=== PATIENT | male | born 1965 | race African-American/Black ===

== ENCOUNTER 2016-12-03 13:42 | Emergency (ER) | payer MEDICAID, OTHER ==
[~2016-12-03] VITALS: Ht 190.5 cm; Wt 81.6 kg
[~2016-12-03 13:42] MED LIST: DEPAKOTE500 MG PO; IBUPROFEN600 MG ORAL; MONISTAT TOPIC; NKM; SEROQUEL25 MG ORAL; WELLBUTRIN SR150 M1 PO
[2016-12-03 14:08] VITALS: BP 136/84
[2016-12-03 14:23] LABS: MEAN CORPUSCULAR HGB CONC 33.5 G/DL (32.0-36.0); MEAN CORPUSCULAR VOLUME 98 FL (80-99); MEAN PLATELET VOLUME 6.4 FL (6.5-10.1); PLATELET COUNT 257 K/UL (150-450); RED BLOOD COUNT 4.75 M/UL (4.70-6.10); RED CELL DISTRIBUTION WIDTH 11.4 % (11.6-14.8)
[2016-12-03 14:35] LABS: ACETAMINOPHEN < 10 ug/mL (10-30); ALANINE AMINOTRANSFERASE 23 U/L (3-41); ALBUMIN/GLOBULIN RATIO 1.1 (1.0-2.7); ALCOHOL < 10 mg/dL; ANION GAP 18 (5-15); ASPARTATE AMINO TRANSFERASE 27 U/L (5-40); CALCIUM 9.5 mg/dL (8.6-10.2); CARBON DIOXIDE 23 mEQ/L (20-30); CHLORIDE 95 mEQ/L (98-107); CREATININE 1.1 mg/dL (0.7-1.2); GLOMERULAR FILTRATION RATE > 60 mL/min (>60); HEMOLYSIS 3; SODIUM 136 mEQ/L (135-145); TOTAL PROTEIN 8.2 g/dL (6.6-8.7)
[2016-12-03 14:42] LABS: LYMPHOCYTES % (MANUAL) 10 % (20-45); NEUTROPHILS % (MANUAL) 84 % (45-75); TOTAL CELLS COUNTED 100
[2016-12-03 14:43] LABS: BAND NEUTROPHILS % (MANUAL) 0 % (0-8); BASOPHILS % (MANUAL) 0 % (0-2); EOSINOPHILS % (MANUAL) 0 % (0-3); PLATELET ESTIMATE ADEQUATE; PLATELET MORPHOLOGY NORMAL
[2016-12-03 14:47] LABS: BILIRUBIN,DIRECT 0.2 mg/dL (0.1-0.3)
--- NOTE | 2016-12-03 15:18 | Emergency Room Report ---
History of Present Illness General Chief Complaint: Suicidal Source: Patient (ELIZABETH LEBRON) Present Illness HPI The patient is a 51-year-old male with history of bipolar disorder and schizophrenia presenting for suicidal and homicidal ideation. The patient states that he last took his psychiatric medications one month prior because he was "kicked out" of a psychiatric facility without any prescription for medications. The patient has not seen any mental health specialist in this time. The patient states that he now wants to run out into a busy street in order to hurt himself and others because he does not like people. The patient denies using any drugs or drinking alcohol recently. The patient denies any other symptoms including chest pain, shortness of breath , nausea, vomiting, fever, chills, abdominal pain (ELIZABETH LEBRON) Allergies: Coded Allergies: No Known Allergies (Unverified , 09/19/13) Patient History Past Medical History: see triage record Pertinent Family History: none Reviewed Nursing Documentation: PMH: Agreed, PSxH: Agreed (ELIZABETH LEBRON) Nursing Documentation-PMH Past Medical History: No History, Except For Hx Hypertension: Yes History Of Psychiatric Problem: Yes - schizophrenic bipolar anxiety disorder (ELIZABETH LEBRON) Review of Systems All Other Systems: negative except mentioned in HPI (ELIZABETH LEBRON) Physical Exam Vital Signs Date Time Temp Pulse Resp B/P Pulse Ox O2 Delivery O2 Flow Rate FiO2 12/03/16 13:49 99.0 101 18 136/84 98 Room Air Sp02 EP Interpretation: reviewed, normal General Appearance: no apparent distress, alert, GCS 15, non-toxic Head: normocephalic, atraumatic Eyes: bilateral eye PERRL, bilateral eye normal inspection ENT: hearing grossly normal, normal pharynx, no angioedema, normal voice Neck: full range of motion, supple/symm/no masses Respiratory: chest non-tender, no respiratory distress, no accessory muscle use , speaking full sentences, wheezing - diffuse Cardiovascular #1: regular rate, rhythm, no edema Gastrointestinal: normal bowel sounds, non tender, soft, non-distended, no guarding, no rebound Rectal: deferred Genitourinary: normal inspection, no CVA tenderness Musculoskeletal: back normal, gait/station normal, normal range of motion, non- tender Neurologic: alert, oriented x3, responsive, motor strength/tone normal, sensory intact, normal gait, speech normal Psychiatric: judgement/insight normal, memory normal, mood/affect normal, no suicidal/homicidal ideation Suicide Risk Assessment: Suicidal Ideation: Yes Had intent to initiate attempt: No Pt's plan for suicide attempt: Yes Has means to complete attempt: Yes Skin: normal color, no rash, warm/dry, well hydrated Lymphatic: no adenopathy (ELIZABETH LEBRON) Medical Decision Making PA Attestation Dr. Bob is my supervising physician. Patient management was discussed with my supervising physician (ELIZABETH LEBRON) Diagnostic Impression: Primary Impression: Suicidal ideation Additional Impressions: Pneumonia Qualified Codes: J18.9 - Pneumonia, unspecified organism Cocaine abuse ER Course The patient is a 51-year-old male with history of bipolar disorder and schizophrenia presenting for suicidal and homicidal ideation Differential diagnoses considered but not limited to suicidal ideation, homicidal ideation, depression, Pneumonia, bronchitis Physical exam: Vitals within normal limits. No apparent distress. The patient is resting comfortably. HEENT exam unremarkable. Lungs: There is diffuse wheezing noted. No respiratory distress. RRR Abdomen is soft and nontender. Normal bowel sounds Skin is warm and dry Labs: CBC show significant leukocytosis. Urine drug screen positive for cocaine Otherwise unremarkable The pt is started on levaquin and will be admitted as he is no longer medically cleared due to cough, wheezing, and leukocytosis. Dr. Bob spoke with Dr. Melendez regarding admission. Pt to be admitted in stable condition. Laboratory Tests Test 12/03/16 14:00 12/03/16 19:20 White Blood Count 21.0 K/UL (4.8-10.8) H 18.9 K/UL (4.8-10.8) H Red Blood Count 4.75 M/UL (4.70-6.10) 4.36 M/UL (4.70-6.10) L Hemoglobin 15.7 G/DL (14.2-18.0) 14.1 G/DL (14.2-18.0) L Hematocrit 46.8 % (42.0-52.0) 42.2 % (42.0-52.0) Mean Corpuscular Volume 98 FL (80-99) 97 FL (80-99) Mean Corpuscular Hemoglobin 33.0 PG (27.0-31.0) H 32.4 PG (27.0-31.0) H Mean Corpuscular Hemoglobin Concent 33.5 G/DL (32.0-36.0) 33.5 G/DL (32.0-36.0) Red Cell Distribution Width 11.4 % (11.6-14.8) L 11.3 % (11.6-14.8) L Platelet Count 257 K/UL (150-450) 236 K/UL (150-450) Mean Platelet Volume 6.4 FL (6.5-10.1) L 6.3 FL (6.5-10.1) L Neutrophils (%) (Auto) % (45.0-75.0) % (45.0-75.0) Lymphocytes (%) (Auto) % (20.0-45.0) % (20.0-45.0) Monocytes (%) (Auto) % (1.0-10.0) % (1.0-10.0) Eosinophils (%) (Auto) % (0.0-3.0) % (0.0-3.0) Basophils (%) (Auto) % (0.0-2.0) % (0.0-2.0) Differential Total Cells Counted 100 100 Neutrophils % (Manual) 84 % (45-75) H 70 % (45-75) Lymphocytes % (Manual) 10 % (20-45) L 22 % (20-45) Monocytes % (Manual) 6 % (1-10) 4 % (1-10) Eosinophils % (Manual) 0 % (0-3) 0 % (0-3) Basophils % (Manual) 0 % (0-2) 0 % (0-2) Band Neutrophils 0 % (0-8) 4 % (0-8) Platelet Estimate Adequate Adequate Platelet Morphology Normal Normal Red Blood Cell Morphology Normal Normal Sodium Level 136 mEQ/L (135-145) Potassium Level 4.0 mEQ/L (3.4-4.9) Chloride Level 95 mEQ/L (98-107) L Carbon Dioxide Level 23 mEQ/L (20-30) Anion Gap 18 (5-15) H Blood Urea Nitrogen 14 mg/dL (7-23) Creatinine 1.1 mg/dL (0.7-1.2) Estimate Glomerular Filtration Rate > 60 mL/min (>60) Glucose Level 103 mg/dL (74-106) Calcium Level 9.5 mg/dL (8.6-10.2) Total Bilirubin 1.1 mg/dL (0.0-1.2) Direct Bilirubin 0.2 mg/dL (0.1-0.3) Aspartate Amino Transferase (AST) 27 U/L (5-40) Alanine Aminotransferase (ALT) 23 U/L (3-41) Alkaline Phosphatase 58 U/L (40-129) Total Protein 8.2 g/dL (6.6-8.7) Albumin 4.3 g/dL (3.5-5.2) Globulin 3.9 g/dL Albumin/Globulin Ratio 1.1 (1.0-2.7) Salicylates Level < 1 mg/dL (10-30) L Urine Opiates Screen Negative (NEGATIVE) Acetaminophen Level < 10 ug/mL (10-30) L Urine Barbiturates Screen Negative (NEGATIVE) Phencyclidine (PCP) Screen Negative (NEGATIVE) Urine Amphetamines Screen Negative (NEGATIVE) Urine Benzodiazepines Screen Negative (NEGATIVE) Urine Cocaine Screen Positive (NEGATIVE) H Urine Marijuana (THC) Screen Negative (NEGATIVE) Serum Alcohol < 10 mg/dL Lab Results Impression CBC show significant leukocytosis. Urine drug screen positive for cocaine Otherwise unremarkable (ELIZABETH LEBRON) ER Course Patient signed out to me. He was pending transfer. Unfortunately there is no bed and is delayed transfer so patient will be admitted here. He is well-known to me. She been here multiple time for suicidal and homicidal thought secondary to cocaine abuse. He does have a pneumonia with a leukocytosis. Antibiotic started. Will admit to Dr. Huerta. Patient slept through the night here. Now he is awake. He said he felt better. He wants his Seroquel and wants to leave. We'll discharge with cushion for antibiotics and cervical. We'll give him mental health referral. This patient is a chronic risk of self injury due to poor impulse control, limited coping skills, and judgment intermittently impaired by intoxication. I believe that the available clinical evidence to suggest that these characteristics derived primarily from personality disorder and are likely very stable over time. Hospitalization would likely attenuate risk of self-harm only during chcf period, without lasting risk reduction. Serious self-harm , while possible, would likely be inadvertent, and because of impulsivity, and foreseeable. For these reasons, I do not believe hospitalization would provide meaningful reduction in risk of self-harm. (ARTI RUIZ M.D.) Chest X-Ray Diagnostic Results EP Interpretation: Yes Findings: other - LLL infiltrate Number of Views: 1 PA Scribe Text I am acting as scribe for my supervising physician. My supervising physician's interpretation of the chest xrays are there is infiltrate of the left lower lobe (ELIZABETH LEBRON) Last Vital Signs Date Time Temp Pulse Resp B/P Pulse Ox O2 Delivery O2 Flow Rate FiO2 12/03/16 14:08 18 136/84 98 Room Air 12/03/16 13:49 99.0 101 Status: improved (ELIZABETH LEBRON) Status: improved (ARTI RUIZ M.D.) Disposition: HOME, SELF-CARE Condition: Stable Scripts Azithromycin* (ZITHROMAX*) 250 Mg Tablet 250 MG ORAL DAILY, #6 TAB 0 Refills Take two tables once daily for 1 day, then one tablet once daily for 4 days. Prov: ARTI RUIZ M.D. 12/04/16 Quetiapine Fumarate (SEROQUEL XR) 150 Mg Tab.er.24h 150 MG ORAL DAILY, #30 TAB Prov: ARTI RUIZ M.D. 12/04/16 Referrals: [facility] (PCP) Additional Instructions: Abstain from drugs and alcohol. Followup with your DrNadir in 7 days. Followup with rehabilitation. ELIZABETH LEBRON Dec 03, 2016 15:18 ARTI RUIZ M.D. Dec 03, 2016 23:16
[2016-12-03 15:48] VITALS: BP 139/69
[2016-12-03 18:12] VITALS: BP 133/64
[2016-12-03 19:28] LABS: MEAN CORPUSCULAR HEMOGLOBIN 32.4 PG (27.0-31.0); MEAN CORPUSCULAR HGB CONC 33.5 G/DL (32.0-36.0); MEAN CORPUSCULAR VOLUME 97 FL (80-99); MEAN PLATELET VOLUME 6.3 FL (6.5-10.1); PLATELET COUNT 236 K/UL (150-450); RED BLOOD COUNT 4.36 M/UL (4.70-6.10); RED CELL DISTRIBUTION WIDTH 11.3 % (11.6-14.8); WHITE BLOOD COUNT 18.9 K/UL (4.8-10.8)
[2016-12-03 20:16] VITALS: BP 135/67
[2016-12-03 21:29] LABS: BAND NEUTROPHILS % (MANUAL) 4 % (0-8); BASOPHILS % (MANUAL) 0 % (0-2); EOSINOPHILS % (MANUAL) 0 % (0-3); LYMPHOCYTES % (MANUAL) 22 % (20-45); NEUTROPHILS % (MANUAL) 70 % (45-75); PLATELET ESTIMATE ADEQUATE; PLATELET MORPHOLOGY NORMAL; TOTAL CELLS COUNTED 100
[2016-12-03 21:48] VITALS: BP 131/72
[2016-12-04] MEDS ORDERED: Miralax 17gm pkt ORAL PRN (00:15)
[2016-12-04] MEDS ORDERED: Mylanta II UD 30ml ORAL PRN (00:15)
[2016-12-04] MEDS ORDERED: Nitroglycerin Subl 0.4mg tab (Bottle Of 25) SL PRN (00:15)
[2016-12-04] MEDS ORDERED: DuoNeb 0.5-3(2.5)mg/3ml neb HHN PRN (00:15)
[2016-12-04] MEDS ORDERED: Promethazine/Codeine 5ml UD ORAL PRN (00:15)
[2016-12-04 01:30] VITALS: BP 127/73
[2016-12-04 02:35] VITALS: BP 130/75
[2016-12-04 03:40] VITALS: BP 126/69
[2016-12-04] MEDS ORDERED: SEROQUEL XR150 MG ORAL (05:25)
[2016-12-04] MEDS ORDERED: ZITHROMAX250 MG ORAL (05:25)
[2016-12-04 05:30] VITALS: BP 123/74
[2016-12-04] MEDS: Cefepime HCl 1 GM in D5W 55 ML IV SCH ×2 (05:48→05:49)
[2016-12-04 06:00] VITALS: BP 123/74
[2016-12-04] MEDS ORDERED: Heparin 5000 units/ml inj SUBQ SCH (09:00)
[2016-12-04] MEDS ORDERED: Depakote 500mg tab ORAL SCH (09:00)
--- NOTE | 2016-12-04 13:39 | Diagnostic Imaging Report ---
Indication: SOB Technique: One view of the chest Comparison: 04/14/2016 Findings: Atelectatic changes are seen at both lung bases. No acute infiltrates or effusions. Heart size is upper limits of normal Impression: No acute process
== END 2016-12-04 06:00 | disposition other institution (70) ==
LOC: EMR 14:17 → UNDOADMIN 22:46 → 4E 22:46 → EDBEDREQ 23:09 → 4E 12-04 06:00
DX: R45.851 Suicidal ideations (principal); J18.9 Pneumonia, unspecified organism; D72.829 Elevated white blood cell count, unspecified; F14.10 Cocaine abuse, uncomplicated; I10 Essential (primary) hypertension; F20.9 Schizophrenia, unspecified; F31.9 Bipolar disorder, unspecified; F41.9 Anxiety disorder, unspecified
CPT/HCPCS: 36415; 71010; 80053; 80300; 82248; 85007; 85025; 87040; 96374; 96375; 99284; G0480; J0692; J1956; 80329

== ENCOUNTER 2017-01-21 03:47 | Emergency (ER) | payer OTHER ==
[~2017-01-21] VITALS: Ht 190.5 cm; Wt 81.6 kg
[~2017-01-21 03:47] MED LIST changes: +SEROQUEL XR150 MG ORAL; +ZITHROMAX250 MG ORAL
[2017-01-21 04:00] VITALS: BP 136/95
[2017-01-21] MEDS ORDERED: Depakote ER 500mg tab ORAL ONE (04:30)
[2017-01-21 06:00] VITALS: BP 138/97
[2017-01-21 06:15] VITALS: BP 138/97
--- NOTE | 2017-01-22 00:56 | Emergency Room Report ---
History of Present Illness General Chief Complaint: Pain Source: Patient Present Illness HPI 51-year-old male presents ED for evaluation. Patient notes history of bipolar and schizophrenia. States that he needs his medication. Also complaining of runny nose and cough. Denies any fevers or chills. Patient denies any suicidal homicidal ideation. Denies hearing voices. Denies alcohol or drug use. No other aggravating or relieving factors. Denies any other associated symptoms Allergies: Coded Allergies: No Known Allergies (Unverified , 01/21/17) Patient History Past Medical History: psych hx Past Surgical History: none Pertinent Family History: none Social History: Denies: alcohol use, drug use, smoking Immunizations: UTD Reviewed Nursing Documentation: PMH: Agreed, PSxH: Agreed Nursing Documentation-PMH Past Medical History: No History, Except For Hx Hypertension: Yes History Of Psychiatric Problem: Yes - bi-polar, anxiety disorder Review of Systems All Other Systems: negative except mentioned in HPI Physical Exam Vital Signs Date Time Temp Pulse Resp B/P Pulse Ox O2 Delivery O2 Flow Rate FiO2 01/21/17 03:52 98.1 86 16 136/95 99 Room Air Sp02 EP Interpretation: reviewed, normal General Appearance: no apparent distress, alert, GCS 15, non-toxic Head: normocephalic, atraumatic Eyes: bilateral eye PERRL, bilateral eye normal inspection ENT: hearing grossly normal, normal pharynx, no angioedema, normal voice Neck: full range of motion, supple/symm/no masses Respiratory: chest non-tender, lungs clear, normal breath sounds, speaking full sentences Cardiovascular #1: regular rate, rhythm, no edema Cardiovascular #2: 2+ carotid (R), 2+ carotid (L), 2+ radial (R), 2+ radial (L) , 2+ dorsalis pedis (R), 2+ dorsalis pedis (L) Gastrointestinal: normal bowel sounds, non tender, soft, non-distended, no guarding, no rebound Rectal: deferred Genitourinary: normal inspection, no CVA tenderness Musculoskeletal: back normal, gait/station normal, normal range of motion, non- tender Neurologic: alert, oriented x3, responsive, motor strength/tone normal, sensory intact, speech normal Psychiatric: judgement/insight normal, memory normal, no suicidal/homicidal ideation, no delusions, depressed affect, anxious Reflexes: 3+ bicep (R), 3+ bicep (L), 3+ tricep (R), 3+ tricep (L), 3+ knee (R) , 3+ knee (L) Skin: normal color, no rash, warm/dry, well hydrated Lymphatic: no adenopathy Medical Decision Making Diagnostic Impression: Primary Impression: Behavioral disorder Additional Impression: Upper respiratory disease ER Course Hospital Course 51-year-old male presents to ED complaining of cough, runny nose Differential diagnoses include: URI, pharyngitis, otitis media, asthma Clinical course Patient placed on stretcher. After initial history, physical exam reveals a male in no acute distress. Bilateral TM unremarkable. No pharyngeal erythema. No tonsillar exudates. No lymphadenopathy. lungs clear. abdomen soft. No evidence of suicidal or homicidal ideation. Denies hearing voices. Patient given Depakote in ED Diagnosis - URI, behavioral disorder Stable and discharged home. Instructed to followup with PMD. Return to ED if symptoms recur or worsen Last Vital Signs Date Time Temp Pulse Resp B/P Pulse Ox O2 Delivery O2 Flow Rate FiO2 01/21/17 06:15 98.5 91 16 138/97 99 Room Air Status: improved Disposition: HOME, SELF-CARE Condition: Stable Patient Instructions: Bipolar Disorder KAILEY ANTHONY M.D. Jan 22, 2017 00:55
== END 2017-01-21 06:30 | disposition home or self-care (01) ==
LOC: EMR 04:05
DX: J06.9 Acute upper respiratory infection, unspecified (principal); F91.9 Conduct disorder, unspecified; I10 Essential (primary) hypertension; F31.9 Bipolar disorder, unspecified; F20.9 Schizophrenia, unspecified; F41.9 Anxiety disorder, unspecified
CPT/HCPCS: 99282

== ENCOUNTER 2017-02-05 05:07 | Emergency (ER) | payer OTHER ==
[~2017-02-05] VITALS: Ht 190.5 cm; Wt 81.6 kg
[2017-02-05 05:15] VITALS: BP 128/83
--- NOTE | 2017-02-05 05:36 | Emergency Room Report ---
History of Present Illness General Chief Complaint: Pain Source: Patient, Medical Record Present Illness HPI This is a 51-year-old male well-known to this ER. He has a history of cocaine abuse and also opioid dependence. He also has a psych history. He presents with chief complaint of bilateral feet pain. This is a chronic problem. He said pain is 10 out of 10. Hard time walking. Denies any fever. Denies any trauma. Said that he needed a [place]. No other complaint. Allergies: Coded Allergies: No Known Allergies (Unverified , 01/21/17) Patient History Past Medical History: see triage record, old chart reviewed, psych hx Past Surgical History: other Pertinent Family History: none Social History: Reports: alcohol use, drug use, smoking Immunizations: other Reviewed Nursing Documentation: PMH: Agreed, PSxH: Agreed Nursing Documentation-PMH Hx Hypertension: Yes History Of Psychiatric Problem: Yes - bipolar, manic depressive, schizophrenia Review of Systems Eye: Denies: blurred vision, eye pain ENT: Denies: ear pain, nose congestion, throat swelling Respiratory: Denies: cough, shortness of breath Cardiovascular: Denies: chest pain, palpitations Gastrointestinal: Denies: abdominal pain, diarrhea, nausea, vomiting Musculoskeletal: Denies: back pain, joint pain Skin: Denies: rash Neurological: Denies: headache, numbness Endocrine: Denies: increased thirst, increased urine Hematologic/Lymphatic: Denies: easy bruising All Other Systems: negative except mentioned in HPI Physical Exam Vital Signs Date Time Temp Pulse Resp B/P Pulse Ox O2 Delivery O2 Flow Rate FiO2 02/05/17 05:09 97.9 81 16 128/83 98 Room Air vitals normal Sp02 EP Interpretation: reviewed, normal General Appearance: well appearing, no apparent distress, alert Head: normocephalic, atraumatic Eyes: bilateral eye EOMI, bilateral eye PERRL ENT: hearing grossly normal, normal pharynx Neck: full range of motion, supple, no meningismus Respiratory: chest non-tender, lungs clear, normal breath sounds Cardiovascular #1: regular rate, rhythm, no murmur Gastrointestinal: normal bowel sounds, non tender, no mass, no organomegaly, no bruit, non-distended Musculoskeletal: back normal, gait/station normal, normal range of motion, other - Feet with callous but no deformity. No trauma. Psychiatric: mood/affect normal Skin: warm/dry Medical Decision Making Diagnostic Impression: Primary Impression: Foot pain, bilateral Additional Impression: Cocaine abuse ER Course Patient presents with bilateral feet pain. He walked in here without any difficulty. There is no trauma. No evidence of infection. No evidence of septic joint. No evidence of necrotizing fasciitis. We'll discharge home. Encouraged him to stop using cocaine. Last Vital Signs Date Time Temp Pulse Resp B/P Pulse Ox O2 Delivery O2 Flow Rate FiO2 02/05/17 05:09 97.9 81 16 128/83 98 Room Air Status: improved Disposition: HOME, SELF-CARE Condition: Stable Referrals: [facility] (PCP) Patient Instructions: Chronic Pain Additional Instructions: Stop using drugs. Followup with rehabilitation. Followup with your Dr. in 7 days. Return if worse. ARTI RUIZ M.D. Feb 05, 2017 05:36
[2017-02-05 05:46] VITALS: BP 128/83
== END 2017-02-05 05:45 | disposition home or self-care (01) ==
LOC: EMR 05:15
DX: M79.672 Pain in left foot (principal); M79.671 Pain in right foot; F14.10 Cocaine abuse, uncomplicated; I10 Essential (primary) hypertension; F31.9 Bipolar disorder, unspecified; F20.9 Schizophrenia, unspecified; F17.200 Nicotine dependence, unspecified, uncomplicated; F11.20 Opioid dependence, uncomplicated
CPT/HCPCS: 99282

== ENCOUNTER 2017-04-22 05:14 | Emergency (ER) | payer OTHER ==
[~2017-04-22] VITALS: Ht 190.5 cm; Wt 78.9 kg
[2017-04-22] MEDS ORDERED: Depakote 500mg tab ORAL ONE (05:30)
--- NOTE | 2017-04-22 05:33 | Emergency Room Report ---
History of Present Illness General Chief Complaint: Pain Source: Patient Present Illness HPI Patient presents with complaints of bilateral feet pain Patient reports that he was out of his psychiatric medication including Depakote Therefore he was walking around a lot causing increased pain Patient reports being off the medicine for the past 2 days Otherwise denies any homicidal or suicidal thoughts Denies any chest pressures of breath Pain to both feet is 10 out of 10 denies any other focal weakness Allergies: Coded Allergies: No Known Allergies (Unverified , 01/21/17) Patient History Past Medical History: see triage record Pertinent Family History: none Reviewed Nursing Documentation: PMH: Agreed, PSxH: Agreed Nursing Documentation-PM Past Medical History: No History, Except For Hx Hypertension: Yes History Of Psychiatric Problem: Yes - bi-polar Review of Systems All Other Systems: negative except mentioned in HPI Physical Exam Vital Signs Date Time Temp Pulse Resp B/P Pulse Ox O2 Delivery O2 Flow Rate FiO2 04/22/17 05:17 97.3 89 16 114/81 98 Room Air Sp02 EP Interpretation: reviewed, normal General Appearance: well appearing, no apparent distress Head: normocephalic, atraumatic Eyes: bilateral eye EOMI, bilateral eye PERRL ENT: hearing grossly normal, normal pharynx, TMs + canals normal, uvula midline Neck: full range of motion, supple, no meningismus, no bony tend Respiratory: lungs clear, normal breath sounds, no rhonchi, no respiratory distress, no retraction, no accessory muscle use Cardiovascular #1: normal peripheral pulses, regular rate, rhythm, no edema, no gallop, no JVD, no murmur Gastrointestinal: normal bowel sounds, non tender, soft, no mass, no organomegaly, non-distended, no guarding, no hernia, no pulsatile mass, no rebound Genitourinary: no CVA tenderness Musculoskeletal: other - Patient has a chronic appearance of a blister on both base of the feet no obvious erythema, appears to be chronic Neurologic: oriented x3, responsive, returned case inspector III-XII nml as tested, motor strength/ tone normal, sensory intact Psychiatric: anxious - Initially mildly anxious but denies any homicidal or suicidal thoughts, Skin: other - Old-appearing blisters on both base of the feet Lymphatic: normal inspection, no adenopathy Medical Decision Making Diagnostic Impression: Primary Impression: Foot pain, bilateral Additional Impression: Medication refill ER Course Patient was provided acute medications here in the ER continues to deny any homicidal suicidal thoughts Patient reports that he simply wanted a prescription for his medication And at this time stable for close outpatient followup Last Vital Signs Date Time Temp Pulse Resp B/P Pulse Ox O2 Delivery O2 Flow Rate FiO2 04/22/17 05:17 97.3 89 16 114/81 98 Room Air Status: improved Disposition: HOME, SELF-CARE Condition: Improved Scripts Quetiapine Fumarate* (SEROQUEL*) 200 Mg Tablet 200 MG ORAL DAILY, #20 TAB Prov: KARLA POOLE D.O. 04/22/17 Divalproex Sodium (Depakote) 500 Mg Tablet.dr 500 MG PO BID, #30 TAB Prov: KARLA POOLE D.O. 04/22/17 Additional Instructions: Patient is provided with the discharge instructions notified to follow up with primary doctor in the next 2-3 days otherwise return to the er with any worsening symptoms. Please note that this report is being documented using [employer] technology. This can lead to erroneous entry secondary to incorrect interpretation by the dictating instrument. KARLA POOLE D.O. Apr 22, 2017 05:33
[2017-04-22] MEDS ORDERED: QUETIAPINE FUM200 MG ORAL (05:35)
[2017-04-22] MEDS ORDERED: DEPAKOTE500 MG PO (05:35)
[2017-04-22 05:56] VITALS: BP 114/81
[2017-04-22 05:57] VITALS: BP 114/81
== END 2017-04-22 06:16 | disposition home or self-care (01) ==
LOC: EMR 05:45
DX: M25.572 Pain in left ankle and joints of left foot (principal); Z76.0 Encounter for issue of repeat prescription; M25.571 Pain in right ankle and joints of right foot; I10 Essential (primary) hypertension
CPT/HCPCS: 99284

== ENCOUNTER 2017-07-19 07:34 | Emergency (ER) | payer OTHER ==
[~2017-07-19] VITALS: Ht 190.5 cm; Wt 84.8 kg
[~2017-07-19 07:34] MED LIST changes: +QUETIAPINE FUM200 MG ORAL
[2017-07-19 07:45] VITALS: BP 118/77
--- NOTE | 2017-07-19 08:13 | Emergency Room Report ---
History of Present Illness General Chief Complaint: Pain Source: Patient Present Illness HPI Presents with bilateral foot pain. He states been walking a lot. He states this is because the buses are infrequent. He complains that his left great toe is digging into his second toe. There is a bruise underneath the nail. The patient has been seen for the same twice before in the emergency department. The patient has a history of bipolar disorder and schizophrenia. He states he has a prescription but hasn't filled it. In the past he's been on valproic acid , Seroquel and Wellbutrin. He denies suicidal ideation at this time and also states that he doesn't feel that he needs to be taking his medication at this time. He denies any fevers, chills, redness of the skin. He does have callus formations on his feet. Allergies: Coded Allergies: No Known Allergies (Unverified , 01/21/17) Patient History Past Medical History: see triage record Social History: Reports: smoking, drug use - in past + cocaine Social History Narrative has apartment/home Reviewed Nursing Documentation: PMH: Agreed, PSxH: Agreed Nursing Documentation-PMH Hx Hypertension: Yes Review of Systems All Other Systems: negative except mentioned in HPI Physical Exam Vital Signs Date Time Temp Pulse Resp B/P (MAP) Pulse Ox O2 Delivery O2 Flow Rate FiO2 07/19/17 07:45 98.2 83 15 118/77 98 Room Air Sp02 EP Interpretation: reviewed, normal General Appearance: normal inspection, well appearing, no apparent distress, thin Head: normocephalic, atraumatic Eyes: bilateral eye PERRL, bilateral eye Scleral Injection ENT: hearing grossly normal, normal voice, moist mucus membranes Neck: full range of motion, supple Respiratory: lungs clear, normal breath sounds, no respiratory distress, speaking full sentences Cardiovascular #1: regular rate, rhythm Gastrointestinal: normal inspection, non tender, soft, scaphoid Musculoskeletal: back normal, digits/nails normal - see skin, gait/station normal, normal range of motion, no calf tenderness Neurologic: alert, cytology manager III-XII nml as tested, motor strength/tone normal, DTRs symmetric, sensory intact, cerebellar normal, normal gait Psychiatric: no suicidal/homicidal ideation, depressed affect Skin: other - callouses, subungual hematoma great toe (old) Medical Decision Making Diagnostic Impression: Primary Impression: Foot pain, bilateral Additional Impression: Schizoaffective disorder, bipolar type ER Course The patient presents with bilateral foot pain. There is no evidence of recent trauma. He walks a lot. Differential includes strain, callous amongst others. Exam exclude cellulitis. In addition the patient has bipolar disorder and schizophrenia. He slightly inappropriate but not delusional at this time. He also denies suicidality. He does have a prescription for medication. The patient will be treated with Motrin here. Slightly more labile when leaving but purposeful. Advised to fill his medications. Patient stable for outpatient observation and treatment. Last Vital Signs Date Time Temp Pulse Resp B/P (MAP) Pulse Ox O2 Delivery O2 Flow Rate FiO2 07/19/17 08:35 98.2 83 15 118/77 98 Room Air Status: improved Disposition: HOME, SELF-CARE Condition: Improved Scripts Ibuprofen* (MOTRIN*) 600 Mg Tablet 600 MG ORAL Q6H Y for For Pain, #20 TAB Prov: Josue Partida M.D. 07/19/17 Referrals: [facility] (PCP) Josue Partida M.D. Jul 19, 2017 08:13
[2017-07-19] MEDS ORDERED: IBUPROFEN600 MG ORAL (08:15)
[2017-07-19 08:35] VITALS: BP 118/77
== END 2017-07-19 08:37 | disposition home or self-care (01) ==
LOC: EMR 08:01
DX: M79.672 Pain in left foot (principal); M79.671 Pain in right foot; F25.0 Schizoaffective disorder, bipolar type; F17.200 Nicotine dependence, unspecified, uncomplicated; I10 Essential (primary) hypertension
CPT/HCPCS: 99283

== ENCOUNTER 2017-08-17 09:16 | Emergency (ER) | payer SELFPAY ==
[~2017-08-17] VITALS: Ht 182.9 cm; Wt 81.6 kg
--- NOTE | 2017-08-17 09:17 | Emergency Room Report ---
History of Present Illness General Chief Complaint: Pain Source: Patient, EMS Present Illness HPI Patient 52-year-old male brought in by EMS with [employer]. The patient was in [facility] and would not leave. Patient was brought in after increased leg pain. The patient history is markedly limited by patient's lack of cooperation. Allergies: Coded Allergies: No Known Allergies (Unverified , 01/21/17) Patient History Reviewed Nursing Documentation: PMH: Agreed, PSxH: Agreed Nursing Documentation-PMH Past Medical History: No History, Except For Hx Hypertension: Yes Hx Neurological Problems: Yes - BIPOLAR Review of Systems All Other Systems: limited - by poor cooperation Physical Exam Vital Signs Date Time Temp Pulse Resp B/P (MAP) Pulse Ox O2 Delivery O2 Flow Rate FiO2 08/17/17 09:08 97.7 72 20 116/74 98 Room Air General Appearance: well appearing, no apparent distress, alert, GCS 15 Head: normocephalic, atraumatic ENT: hearing grossly normal, normal voice Neck: full range of motion, supple Respiratory: no respiratory distress, speaking full sentences Cardiovascular #1: normal inspection Gastrointestinal: normal inspection, soft Musculoskeletal: normal inspection, back normal, no calf tenderness Neurologic: normal inspection, alert, responsive, 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 Differential diagnosis included but was not limited to fracture, contusion,vascular insufficiency, aortic aneurysm, cellulitis. Patient's benign exam and does not appear to require any further imaging or laboratory testing at this time. The patient was noted to be sleeping in emergency department. The patient is easily arousable . Patient stated that he only needs his medications which are Depakote and Seroquel.The patient does not appear to have any acute psychiatric need. The patient is advised to follow up with primary care doctor in 1-2 days. Patient is advised to return if any worsening condition or if any changes in status that are concerning. Last Vital Signs Date Time Temp Pulse Resp B/P (MAP) Pulse Ox O2 Delivery O2 Flow Rate FiO2 08/17/17 09:08 97.7 72 20 116/74 98 Room Air Status: improved Disposition: HOME, SELF-CARE Condition: Stable Scripts Divalproex Sodium (Depakote) 500 Mg Tablet.dr 500 MG PO BID, #30 TAB Prov: Santiago Lyon 08/17/17 Quetiapine Fumarate (SEROQUEL XR) 150 Mg Tab.er.24h 150 MG ORAL DAILY, #30 TAB Prov: Santiago Lyon 08/17/17 Santiago Lyon Aug 17, 2017 09:17
[2017-08-17 09:24] VITALS: BP 116/74
[2017-08-17] MEDS ORDERED: Depakote 500mg tab ORAL ONE (13:00)
[2017-08-17] MEDS ORDERED: DEPAKOTE500 MG PO (13:03)
[2017-08-17] MEDS ORDERED: SEROQUEL XR150 MG ORAL (13:03)
[2017-08-17 14:00] VITALS: BP 120/72
[2017-08-17 14:15] VITALS: BP 120/72
== END 2017-08-17 14:19 | disposition home or self-care (01) ==
LOC: EDBD 09:16 → EMR 10:01
DX: R46.89 Other symptoms and signs involving appearance and behavior (principal); M79.672 Pain in left foot; M79.671 Pain in right foot; I10 Essential (primary) hypertension; F31.9 Bipolar disorder, unspecified
CPT/HCPCS: 99284

== ENCOUNTER 2017-10-05 22:31 | Emergency (ER) | payer MEDICAID, OTHER ==
[~2017-10-05] VITALS: Ht 190.5 cm; Wt 81.6 kg
[2017-10-05] MEDS ORDERED: NKM (22:38)
[2017-10-05 22:40] VITALS: BP 140/99
--- NOTE | 2017-10-05 23:05 | Emergency Room Report ---
History of Present Illness General Chief Complaint: General Complaint Source: Patient Present Illness HPI Is a 52-year-old male with a psychiatric history. Also history of drug abuse with cocaine most recently. He presents with chief complaint of bilateral feet pain. This is a chronic issue for him. Denies any fever chills denies any trauma. Pain is 10 out of 10. No nausea no vomiting. Has not been taking his psychiatric medicine also. Allergies: Coded Allergies: No Known Allergies (Unverified , 01/21/17) Patient History Past Medical History: see triage record, old chart reviewed, psych hx Past Surgical History: other Pertinent Family History: none Social History: Reports: drug use Immunizations: other Reviewed Nursing Documentation: PMH: Agreed, PSxH: Agreed Nursing Documentation-PMH Hx Hypertension: Yes History Of Psychiatric Problem: Yes - anxiety, depression, schizoeffective Hx Neurological Problems: Yes - BIPOLAR Review of Systems Eye: Denies: eye pain, blurred vision ENT: Denies: ear pain, nose congestion, throat swelling Respiratory: Denies: cough, shortness of breath Cardiovascular: Denies: chest pain, palpitations Gastrointestinal: Denies: abdominal pain, diarrhea, nausea, vomiting Musculoskeletal: Reports: muscle pain, Denies: back pain, joint pain Skin: Denies: rash Neurological: Denies: headache, numbness Endocrine: Denies: increased thirst, increased urine Hematologic/Lymphatic: Denies: easy bruising All Other Systems: negative except mentioned in HPI Physical Exam Vital Signs Date Time Temp Pulse Resp B/P (MAP) Pulse Ox O2 Delivery O2 Flow Rate FiO2 10/05/17 22:34 98.1 85 18 140/99 98 Room Air vitals normal Sp02 EP Interpretation: reviewed, normal General Appearance: well appearing, no apparent distress, alert Head: normocephalic, atraumatic Eyes: bilateral eye PERRL, bilateral eye EOMI ENT: hearing grossly normal, normal pharynx Neck: full range of motion, supple, no meningismus Respiratory: chest non-tender, lungs clear, normal breath sounds Cardiovascular #1: regular rate, rhythm, no murmur Gastrointestinal: normal bowel sounds, non tender, no mass, no organomegaly, no bruit, non-distended Musculoskeletal: back normal, gait/station normal, normal range of motion, other - No evidence of any trauma to his feet. No swelling. Psychiatric: mood/affect normal Skin: warm/dry Medical Decision Making Diagnostic Impression: Primary Impression: Foot pain, bilateral Additional Impression: Behavioral disorder ER Course Patient presents with exacerbation of chronic pain. I see no trauma. He is walking around without any difficulty. We'll discharge home. Last Vital Signs Date Time Temp Pulse Resp B/P (MAP) Pulse Ox O2 Delivery O2 Flow Rate FiO2 10/05/17 22:34 98.1 85 18 140/99 98 Room Air Status: unchanged Disposition: HOME, SELF-CARE Condition: Stable Referrals: [facility] [place] (PCP) Additional Instructions: Followup with your Dr. in 7 days. Return if worse. ARTI RUIZ M.D. Oct 05, 2017 23:05
[2017-10-05 23:15] VITALS: BP 140/99
== END 2017-10-05 23:15 | disposition home or self-care (01) ==
LOC: EMR 22:57
DX: M79.672 Pain in left foot (principal); M79.671 Pain in right foot; F91.9 Conduct disorder, unspecified; I10 Essential (primary) hypertension; F31.9 Bipolar disorder, unspecified; F41.9 Anxiety disorder, unspecified
CPT/HCPCS: 99282

== ENCOUNTER 2017-12-31 05:41 | Emergency (ER) | payer MEDICAID ==
[~2017-12-31] VITALS: Ht 190.5 cm; Wt 81.6 kg
[2017-12-31] MEDS ORDERED: QUEtiapine 200mg tab ORAL STA (05:45)
[2017-12-31] MEDS ORDERED: Depakote 500mg tab ORAL ONE (05:45)
[2017-12-31 06:24] LABS: APPEARANCE,URINE CLEAR; BILIRUBIN, URINE NEGATIVE (NEGATIVE); COLOR,URINE PALE YELLOW; GLUCOSE, URINE (UA) NEGATIVE (NEGATIVE); KETONES,URINE NEGATIVE (NEGATIVE); LEUKOCYTE ESTERASE ,URINE NEGATIVE (NEGATIVE); NITRITE,URINE NEGATIVE (NEGATIVE); PH,URINE 7 (4.5-8.0); PROTEIN,URINE NEGATIVE (NEGATIVE); UROBILINOGEN,URINE 1 MG/DL (0.0-1.0)
--- NOTE | 2017-12-31 06:30 | Emergency Room Report ---
History of Present Illness General Chief Complaint: Behavioral Complaint Source: Patient Present Illness HPI Patient presents not complying with this antipsychotic medications. He was supposed to be taking Seroquel and Depakote. He states he is suicidal and wants to jump in front of traffic on [employer] and [employer]. No fever, chills, NVD, chest pain, rashes, abdominal pain, NVD, joint pain. He has had similar visits in the past and improved with taking his mediations. Allergies: Coded Allergies: No Known Allergies (Unverified , 01/21/17) Patient History Past Medical History: see triage record Social History: Reports: smoking, drug use - see tox Social History Narrative , live on [facility]ad[facility] Reviewed Nursing Documentation: PMH: Agreed, PSxH: Agreed Nursing Documentation-PMH Hx Hypertension: Yes History Of Psychiatric Problem: Yes - BIPOLAR,SCHIZO Hx Neurological Problems: Yes - BIPOLAR Review of Systems All Other Systems: negative except mentioned in HPI Physical Exam Vital Signs Date Time Temp Pulse Resp B/P (MAP) Pulse Ox O2 Delivery O2 Flow Rate FiO2 12/31/17 05:46 97.9 84 16 132/77 98 Room Air 97.9 Sp02 EP Interpretation: reviewed, normal General Appearance: well appearing, no apparent distress, GCS 15 Head: normocephalic Eyes: bilateral eye normal inspection, bilateral eye PERRL ENT: moist mucus membranes Neck: supple Respiratory: lungs clear, normal breath sounds Cardiovascular #1: regular rate, rhythm Cardiovascular #2: 2+ radial (R) Gastrointestinal: normal inspection, normal bowel sounds, non tender, no mass, non-distended Musculoskeletal: back normal, gait/station normal, normal range of motion Neurologic: alert, oriented x3, grossly normal Psychiatric: other - angry Suicide Risk Assessment: Suicidal Ideation: Yes Had intent to initiate attempt: Yes Pt's plan for suicide attempt: Yes Has means to complete attempt: Yes Skin: normal inspection, warm/dry Medical Decision Making Diagnostic Impression: Primary Impression: Cocaine abuse Additional Impressions: Suicidal ideation Schizoaffective disorder, bipolar type Alcohol abuse Non compliance w medication regimen ER Course Patient presents with suicidal ideation and noncompliance. Differential includes exacerbation of schizoaffective disorder, psychosis, drug or alcohol intoxication and abuse, electrolyte imbalance amongst others. The patient is a nonfocal neurologic exam at this time. Evaluation will be with labs. No imaging is indicated. The patient will be treated with his usual medications and be reevaluated. Patient + for cocaine, THC and alcohol. Rest of labs unremarkable. Needs re-evaluation with meds and after drugs less active. May need psychiatric evaluation. Signed out to Dr. Lyon. Laboratory Tests Test 12/31/17 05:53 12/31/17 06:00 Urine Color Pale yellow Urine Appearance Clear Urine pH 7 (4.5-8.0) Urine Specific [place] 1.010 (1.005-1.035) Urine Protein Negative (NEGATIVE) Urine Glucose (UA) Negative (NEGATIVE) Urine Ketones Negative (NEGATIVE) Urine Occult Blood Negative (NEGATIVE) Urine Nitrite Negative (NEGATIVE) Urine Bilirubin Negative (NEGATIVE) Urine Urobilinogen 1 MG/DL (0.0-1.0) H Urine Leukocyte Esterase Negative (NEGATIVE) Urine Opiates Screen Negative (NEGATIVE) Urine Barbiturates Screen Negative (NEGATIVE) Phencyclidine (PCP) Screen Negative (NEGATIVE) Urine Amphetamines Screen Negative (NEGATIVE) Urine Benzodiazepines Screen Negative (NEGATIVE) Urine Cocaine Screen Positive (NEGATIVE) H Urine Marijuana (THC) Screen Positive (NEGATIVE) H White Blood Count 5.3 K/UL (4.8-10.8) Red Blood Count 4.76 M/UL (4.70-6.10) Hemoglobin 15.3 G/DL (14.2-18.0) Hematocrit 45.0 % (42.0-52.0) Mean Corpuscular Volume 95 FL (80-99) Mean Corpuscular Hemoglobin 32.2 PG (27.0-31.0) H Mean Corpuscular Hemoglobin Concent 34.0 G/DL (32.0-36.0) Red Cell Distribution Width 12.0 % (11.6-14.8) Platelet Count 301 K/UL (150-450) Mean Platelet Volume 6.7 FL (6.5-10.1) Neutrophils (%) (Auto) 34.8 % (45.0-75.0) L Lymphocytes (%) (Auto) 52.3 % (20.0-45.0) H Monocytes (%) (Auto) 8.1 % (1.0-10.0) Eosinophils (%) (Auto) 2.3 % (0.0-3.0) Basophils (%) (Auto) 2.4 % (0.0-2.0) H Sodium Level 139 MMOL/L (136-145) Potassium Level 3.6 MMOL/L (3.5-5.1) Chloride Level 103 MMOL/L (98-107) Carbon Dioxide Level 26 MMOL/L (21-32) Anion Gap 10 mmol/L (5-15) Blood Urea Nitrogen 15 mg/dL (7-18) Creatinine 1.1 MG/DL (0.55-1.30) Estimate Glomerular Filtration Rate > 60 mL/min (>60) Glucose Level 106 MG/DL (74-106) Calcium Level 9.1 MG/DL (8.5-10.1) Total Bilirubin 0.3 MG/DL (0.2-1.0) Aspartate Amino Transferase (AST) 32 U/L (15-37) Alanine Aminotransferase (ALT) 40 U/L (12-78) Alkaline Phosphatase 81 U/L (46-116) Total Creatine Kinase 616 U/L (26-308) H Troponin I 0.000 ng/mL (0.000-0.056) Total Protein 8.2 G/DL (6.4-8.2) Albumin 3.9 G/DL (3.4-5.0) Globulin 4.3 g/dL Albumin/Globulin Ratio 0.9 (1.0-2.7) L Salicylates Level 1.6 ug/mL (2.8-20) L Acetaminophen Level < 2 MCG/ML (10-30) L Valproic Acid Level < 3 MCG/ML (50-100) L Serum Alcohol 40 mg/dL EKG Diagnostic Results Rate: normal Rhythm: NSR ST Segments: no acute changes Rhythm Strip Diag. Results EP Interpretation: yes Rhythm: NSR, no PVC's, no ectopy Last Vital Signs Date Time Temp Pulse Resp B/P (MAP) Pulse Ox O2 Delivery O2 Flow Rate FiO2 12/31/17 09:56 97.9 80 17 118/76 97 Room Air 97.9 Status: improved Disposition: HOME, SELF-CARE Condition: Improved Referrals: [facility] [place],[facility] (PCP) Josue Partida M.D. Dec 31, 2017 06:30
[2017-12-31 06:38] VITALS: BP 132/77
[2017-12-31 07:06] LABS: BASOPHILS % (AUTO) 2.4 % (0.0-2.0); EOSINOPHILS % (AUTO) 2.3 % (0.0-3.0); HEMOGLOBIN 15.3 G/DL (14.2-18.0); LYMPHOCYTES % (AUTO) 52.3 % (20.0-45.0); MEAN CORPUSCULAR VOLUME 95 FL (80-99); MONOCYTES % (AUTO) 8.1 % (1.0-10.0); NEUTROPHILS % (AUTO) 34.8 % (45.0-75.0); PLATELET COUNT 301 K/UL (150-450); RED BLOOD COUNT 4.76 M/UL (4.70-6.10); WHITE BLOOD COUNT 5.3 K/UL (4.8-10.8)
[2017-12-31 07:07] LABS: ANION GAP 10 mmol/L (5-15); BLOOD UREA NITROGEN 15 mg/dL (7-18); CALCIUM 9.1 MG/DL (8.5-10.1); CARBON DIOXIDE 26 MMOL/L (21-32); CHLORIDE 103 MMOL/L (98-107); CREATININE 1.1 MG/DL (0.55-1.30); POTASSIUM 3.6 MMOL/L (3.5-5.1); SODIUM 139 MMOL/L (136-145)
[2017-12-31 07:14] LABS: ALANINE AMINOTRANSFERASE 40 U/L (12-78); ALBUMIN 3.9 G/DL (3.4-5.0); ALBUMIN/GLOBULIN RATIO 0.9 (1.0-2.7); ALKALINE PHOSPHATASE 81 U/L (46-116); ASPARTATE AMINO TRANSFERASE 32 U/L (15-37); BILIRUBIN,TOTAL 0.3 MG/DL (0.2-1.0); CREATINE KINASE 616 U/L (26-308)
[2017-12-31 09:56] VITALS: BP 118/76
[2017-12-31 13:42] VITALS: BP 0/0
--- NOTE | 2017-12-31 15:00 | Cardiology Report ---
APPROVED REPORT EKG Measurement Heart [id number] Normal sinus rhythm Possible Left atrial enlargement Nonspecific T wave abnormality Abnormal ECG
--- NOTE | 2018-01-01 07:00 | Consultation ---
DATE OF CONSULTATION: 12/31/2017 NOTE: POOR AUDIO HISTORY OF PRESENT ILLNESS: The patient is a 52-year-old male, who has been admitted through the voices telling him to kill himself unable to sleep. He stated that psychiatric hospital. He moved to the [facility] before worsening of situation. The patient has been observed in the ED responding to internal stimuli. He stated that he has a psychiatrist and has been prescribed medications, however, he has not been taking the medications. MENTAL STATUS EXAMINATION: The patient is alert and oriented x4. Mood is neutral. Affect is constricted. Thought process is concrete. Thought content, no suicidal or homicidal ideations. No psychotic symptoms. ASSESSMENT: [place] I Schizophrenia by history. [place] II Deferred. [place] III As above. [place] IV Low. [place] V Global assessment of functioning is 50. PLAN: 1. The patient will be discharged. He did not meet criteria for inpatient medical care . 2. The patient is not an imminent danger to self or others. Lilli Charles M.D. DR: VANDA JOB#: [id number] CC:
== END 2017-12-31 13:35 | disposition home or self-care (01) ==
LOC: EMR 06:09
DX: F14.10 Cocaine abuse, uncomplicated (principal); R45.851 Suicidal ideations; F25.0 Schizoaffective disorder, bipolar type; F10.10 Alcohol abuse, uncomplicated; Z91.14 Patient's other noncompliance with medication regimen; I10 Essential (primary) hypertension
CPT/HCPCS: 36415; 80053; 80164; 80307; 80329; 81003; 82550; 84484; 85025; 93005; 99284

== ENCOUNTER 2018-01-29 05:04 | Emergency (ER) | payer MEDICAID ==
[~2018-01-29] VITALS: Ht 190.5 cm; Wt 86.2 kg
[2018-01-29] MEDS ORDERED: Bacitracin Oint UD TOPIC ONE (05:30)
--- NOTE | 2018-01-29 05:38 | Emergency Room Report ---
History of Present Illness General Chief Complaint: Lower Extremity Injury Source: Patient Present Illness HPI The patient was just discharged from [facility] [place] 2 days ago. He was hospitalized for cellulitis of his feet. He received IV antibiotics and was discharged on Keflex. He states he has been taking Keflex for 7 days. Is complaining about pain in his feet. Has been ambulating a substantial amount. He's been living on the streets but is planning on going to live with his brother. The patient denies any fevers, chills, nausea, vomiting, diarrhea. The patient is not suicidal or depressed. His tetanus is up-to-date. H/O schizoaffective bipolar disorder. Allergies: Coded Allergies: No Known Allergies (Unverified , 01/21/17) Patient History Past Medical History: see triage record Social History: Reports: smoking, alcohol use, drug use - cocaine in past Social History Narrative Homeless Reviewed Nursing Documentation: PMH: Agreed; PSxH: Agreed Nursing Documentation-PMH Hx Hypertension: Yes Hx Neurological Problems: Yes - BIPOLAR Review of Systems All Other Systems: negative except mentioned in HPI Physical Exam Vital Signs Date Time Temp Pulse Resp B/P (MAP) Pulse Ox O2 Delivery O2 Flow Rate FiO2 01/29/18 05:20 98.4 97 18 117/74 98 Room Air 98.4 Sp02 EP Interpretation: reviewed, normal General Appearance: well appearing, no apparent distress Head: normocephalic, atraumatic Eyes: bilateral eye normal inspection, bilateral eye PERRL ENT: hearing grossly normal, normal voice, moist mucus membranes Neck: full range of motion, supple Respiratory: no respiratory distress, speaking full sentences Cardiovascular #1: regular rate, rhythm Cardiovascular #2: 2+ dorsalis pedis (R), 2+ dorsalis pedis (L) Gastrointestinal: scaphoid Musculoskeletal: gait/station normal, normal range of motion, no calf tenderness, other - callous formation feet Neurologic: alert, normal gait, grossly normal Psychiatric: mood/affect normal, no suicidal/homicidal ideation Skin: other - ulcer top of L 2nd toe, no erythema (no erythema of feet) Medical Decision Making Diagnostic Impression: Primary Impression: Foot pain, bilateral Additional Impressions: Resolving cellulitis Schizoaffective disorder, bipolar type ER Course The patient presents with bilateral foot pain. He was recently hospitalized for cellulitis. He denies suicidal or homicidal ideation at this time. He has quite a bit of callus formation on his feet. There is no erythema. There is open ulcer over his second toe on the left-hand side. There is no drainage from this at this time. He states he has no medication for pain. Clinically there is no need for labs or x-rays at this time. Diagnosis his clinical. The patient needs analgesia and topical antibiotics. Psychiatrically the patient is stable at this time. The patient is stable for outpatient observation and treatment. Last Vital Signs Date Time Temp Pulse Resp B/P (MAP) Pulse Ox O2 Delivery O2 Flow Rate FiO2 01/29/18 05:46 98.4 18 117/74 98 Room Air 98.4 01/29/18 05:20 97 Status: improved Disposition: HOME, SELF-CARE Condition: Improved Scripts Acetaminophen (Tylenol) 325 Mg Tablet 650 MG ORAL Q6H PRN for Prn Pain/Headache/Temp > 101, #20 TAB 0 Refills Prov: Josue Partida M.D. 01/29/18 Ibuprofen* (MOTRIN*) 600 Mg Tablet 600 MG ORAL Q6H PRN for For Pain, #16 TAB Prov: Josue Partida M.D. 01/29/18 Bacitracin (Bacitracin) 28.4 Gm Oint...g. 1 APPLIC TOPIC BID, #20 GM Prov: Josue Partida M.D. 01/29/18 Referrals: [facility] (PCP) Josue Partida M.D. Jan 29, 2018 05:38
[2018-01-29] MEDS ORDERED: BACITRACIN15 GM TOPIC (05:43)
[2018-01-29] MEDS ORDERED: IBUPROFEN600 MG ORAL (05:43)
[2018-01-29] MEDS ORDERED: TYLENOL325 MG ORAL (05:43)
[2018-01-29 05:46] VITALS: BP 117/74
== END 2018-01-29 05:48 | disposition home or self-care (01) ==
LOC: EMR 05:25
DX: M79.672 Pain in left foot (principal); M79.671 Pain in right foot; L03.032 Cellulitis of left toe; F25.0 Schizoaffective disorder, bipolar type
CPT/HCPCS: 99284

== ENCOUNTER 2018-08-03 09:13 | Emergency (ER) | payer MEDICAID ==
[~2018-08-03] VITALS: Ht 182.9 cm; Wt 92.1 kg
[~2018-08-03 09:13] MED LIST changes: +BACITRACIN15 GM TOPIC; +TYLENOL325 MG ORAL
--- NOTE | 2018-08-03 09:37 | Emergency Room Report ---
History of Present Illness General Chief Complaint: Behavioral Complaint Source: Patient (Santiago Lyon MD) Present Illness HPI Patient 53-year-old male who presented after increased agitation. The patient was having increased hallucinations and suicidal thoughts. Patient states that he did a "gang of cocaine". The patient reports having prior history of psychiatric disease and is supposed to be taking Depakote as well as Seroquel. He reports being out of his medication since . Patient denies any chest discomfort. He reports having generalized agitation. The patient reports having decreased ability to sleep. (Santiago Lyon MD) Allergies: Coded Allergies: No Known Allergies (Unverified , 08/03/18) Patient History Reviewed Nursing Documentation: PMH: Agreed; PSxH: Agreed (Santiago Lyon MD) Nursing Documentation-PMH Past Medical History: No History, Except For Hx Hypertension: Yes Hx Neurological Problems: Yes - BIPOLAR (Santiago Lyon MD) Review of Systems All Other Systems: negative except mentioned in HPI (Santiago Lyon MD) Physical Exam Vital Signs Date Time Temp Pulse Resp B/P (MAP) Pulse Ox O2 Delivery O2 Flow Rate FiO2 08/03/18 09:21 98.0 86 16 128/78 95 Room Air 98.1 Sp02 EP Interpretation: reviewed, normal General Appearance: alert/responsive, no apparent distress, GCS 15, non-toxic Head: atraumatic Eyes: PERRL, lids + conjunctiva normal ENT: hearing intact, no angioedema Neck: supple/symm/no masses, no meningismus Respiratory: effort normal, no wheezing, chest symmetrical Cardiovascular: regular rate, rhythm, no edema Cardiovascular #2: 2+ carotid (R), 2+ carotid (L), 2+ dorsalis pedis (R), 2+ dorsalis pedis (L) Gastrointestinal: non-tender, no mass, non-distended, no rebound/guarding, normal bowel sounds Musculoskeletal: gait & station normal, strength & tone normal, normal ROM, non -tender Neurologic: oriented x3, sensory intact, normal speech Skin: no rash, well hydrated Lymphatic: normal inspection (Santiago Lyon MD) Medical Decision Making Diagnostic Impression: Primary Impression: Cocaine abuse Additional Impressions: Noncompliance with medications Schizoaffective disorder, bipolar type Foot pain, bilateral ER Course Patient presented for bilateral foot pain and agitation.. Differential diagnoses include substance abuse, psychosis, bipolar disorder, depression, malingering. Patient was given Ativan with some improvement in agitation. Patient was given ibuprofen for pain to his feet. This appears chronic.Dr. Charles was contacted for psychiatric consult. Labs Test 08/03/18 09:45 08/03/18 10:00 Urine Color Pale yellow Urine Appearance Clear Urine pH 5 (4.5-8.0) Urine Specific [place] 1.010 (1.005-1.035) Urine Protein Negative (NEGATIVE) Urine Glucose (UA) Negative (NEGATIVE) Urine Ketones Negative (NEGATIVE) Urine Blood Negative (NEGATIVE) Urine Nitrite Negative (NEGATIVE) Urine Bilirubin Negative (NEGATIVE) Urine Urobilinogen Normal MG/DL (0.0-1.0) Urine Leukocyte Esterase Negative (NEGATIVE) Urine Opiates Screen Negative (NEGATIVE) Urine Barbiturates Screen Negative (NEGATIVE) Phencyclidine (PCP) Screen Negative (NEGATIVE) Urine Amphetamines Screen Negative (NEGATIVE) Urine Benzodiazepines Screen Negative (NEGATIVE) Urine Cocaine Screen Positive (NEGATIVE) Urine Marijuana (THC) Screen Positive (NEGATIVE) White Blood Count 6.1 K/UL (4.8-10.8) Red Blood Count 4.77 M/UL (4.70-6.10) Hemoglobin 14.9 G/DL (14.2-18.0) Hematocrit 44.0 % (42.0-52.0) Mean Corpuscular Volume 92 FL (80-99) Mean Corpuscular Hemoglobin 31.3 PG (27.0-31.0) Mean Corpuscular Hemoglobin Concent 34.0 G/DL (32.0-36.0) Red Cell Distribution Width 12.2 % (11.6-14.8) Platelet Count 298 K/UL (150-450) Mean Platelet Volume 6.5 FL (6.5-10.1) Neutrophils (%) (Auto) 41.3 % (45.0-75.0) Lymphocytes (%) (Auto) 47.0 % (20.0-45.0) Monocytes (%) (Auto) 9.3 % (1.0-10.0) Eosinophils (%) (Auto) 0.8 % (0.0-3.0) Basophils (%) (Auto) 1.6 % (0.0-2.0) Sodium Level 137 MMOL/L (136-145) Potassium Level 4.2 MMOL/L (3.5-5.1) Chloride Level 103 MMOL/L (98-107) Carbon Dioxide Level 25 MMOL/L (21-32) Anion Gap 9 mmol/L (5-15) Blood Urea Nitrogen 15 mg/dL (7-18) Creatinine 1.3 MG/DL (0.55-1.30) Estimat Glomerular Filtration Rate > 60 mL/min (>60) Glucose Level 83 MG/DL (74-106) Calcium Level 9.4 MG/DL (8.5-10.1) Total Bilirubin 1.1 MG/DL (0.2-1.0) Direct Bilirubin 0.2 MG/DL (0.0-0.3) Aspartate Amino Transf (AST/SGOT) 47 U/L (15-37) Alanine Aminotransferase (ALT/SGPT) 52 U/L (12-78) Alkaline Phosphatase 70 U/L (46-116) Total Protein 8.6 G/DL (6.4-8.2) Albumin 4.2 G/DL (3.4-5.0) Globulin 4.4 g/dL Albumin/Globulin Ratio 1.0 (1.0-2.7) Salicylates Level 2.5 ug/mL (2.8-20) Acetaminophen Level < 2 MCG/ML (10-30) Valproic Acid (Depakene) Level 8 MCG/ML (50-100) Serum Alcohol < 3 mg/dL (Santiago Lyon MD) ER Course Patient signout to me. He came in agitated probably secondary to his noncompliance with medication and cocaine abuse. He received Ativan and Depakote. I gave him Zyprexa here. He's been sleeping for several hours and able to eat and drink without a problem. Now he is calm. No longer suicidal. No acute for 5150. This is a frequent and very similar to previous episodes that he usually presents with. We'll discharge home. This patient is a chronic risk of self injury due to poor impulse control, limited coping skills, and judgment intermittently impaired by intoxication. I believe that the available clinical evidence to suggest that these characteristics derived primarily from personality disorder and are likely very stable over time. Hospitalization would likely attenuate risk of self-harm only during shelter period, without lasting risk reduction. Serious self-harm , while possible, would likely be inadvertent, and because of impulsivity, and foreseeable. For these reasons, I do not believe hospitalization would provide meaningful reduction in risk of self-harm. (ARTI RUIZ M.D.) Last Vital Signs Date Time Temp Pulse Resp B/P (MAP) Pulse Ox O2 Delivery O2 Flow Rate FiO2 08/03/18 09:21 98.0 86 16 128/78 95 Room Air 98.1 (Santiago Lyon MD) Status: improved (ARTI RUIZ M.D.) Disposition: HOME, SELF-CARE Condition: Stable Referrals: [facility] [place],[facility]ERR (PCP) Patient Instructions: Self-Destructive Behavior Additional Instructions: Stop using drugs. Take your medication. Follow-up with mental health clinic within a week. Return if worse. Santiago Lyon MD Aug 03, 2018 09:37 ARTI RUIZ M.D. Aug 03, 2018 23:24
[2018-08-03 10:05] LABS: APPEARANCE,URINE CLEAR; BILIRUBIN, URINE NEGATIVE (NEGATIVE); COLOR,URINE PALE YELLOW; GLUCOSE, URINE (UA) NEGATIVE (NEGATIVE); KETONES,URINE NEGATIVE (NEGATIVE); LEUKOCYTE ESTERASE ,URINE NEGATIVE (NEGATIVE); NITRITE,URINE NEGATIVE (NEGATIVE); PH,URINE 5 (4.5-8.0); PROTEIN,URINE NEGATIVE (NEGATIVE); UROBILINOGEN,URINE NORMAL MG/DL (0.0-1.0)
[2018-08-03 10:20] LABS: BASOPHILS % (AUTO) 1.6 % (0.0-2.0); EOSINOPHILS % (AUTO) 0.8 % (0.0-3.0); HEMOGLOBIN 14.9 G/DL (14.2-18.0); MEAN CORPUSCULAR VOLUME 92 FL (80-99); MONOCYTES % (AUTO) 9.3 % (1.0-10.0); NEUTROPHILS % (AUTO) 41.3 % (45.0-75.0); PLATELET COUNT 298 K/UL (150-450); RED BLOOD COUNT 4.77 M/UL (4.70-6.10); RED CELL DISTRIBUTION WIDTH 12.2 % (11.6-14.8); WHITE BLOOD COUNT 6.1 K/UL (4.8-10.8)
[2018-08-03 10:26] VITALS: BP 127/78
[2018-08-03 10:42] LABS: ANION GAP 9 mmol/L (5-15); BLOOD UREA NITROGEN 15 mg/dL (7-18); CALCIUM 9.4 MG/DL (8.5-10.1); CARBON DIOXIDE 25 MMOL/L (21-32); CHLORIDE 103 MMOL/L (98-107); CREATININE 1.3 MG/DL (0.55-1.30); POTASSIUM 4.2 MMOL/L (3.5-5.1); SODIUM 137 MMOL/L (136-145)
[2018-08-03 10:50] LABS: ALANINE AMINOTRANSFERASE 52 U/L (12-78); ALBUMIN 4.2 G/DL (3.4-5.0); ALKALINE PHOSPHATASE 70 U/L (46-116); ASPARTATE AMINO TRANSFERASE 47 U/L (15-37); BILIRUBIN,TOTAL 1.1 MG/DL (0.2-1.0)
[2018-08-03 11:02] LABS: BILIRUBIN,DIRECT 0.2 MG/DL (0.0-0.3)
[2018-08-03] MEDS ORDERED: LORazepam Inj 2mg/ml 1ml IV ONE (12:45)
[2018-08-03] MEDS ORDERED: Depakote 500mg tab ORAL ONE (15:15)
[2018-08-03 17:39] VITALS: BP 129/76
[2018-08-03 23:42] VITALS: BP 140/80
== END 2018-08-03 23:46 | disposition home or self-care (01) ==
LOC: EMR 09:24
DX: F14.10 Cocaine abuse, uncomplicated (principal); Z91.14 Patient's other noncompliance with medication regimen; F25.0 Schizoaffective disorder, bipolar type; M79.672 Pain in left foot; M79.671 Pain in right foot; I10 Essential (primary) hypertension
CPT/HCPCS: 36415; 80053; 80164; 80307; 80329; 81003; 82248; 85025; 99284

== ENCOUNTER 2019-05-02 06:37 | Emergency (ER) | payer MEDICAID, OTHER ==
[~2019-05-02] VITALS: Ht 190.5 cm; Wt 90.7 kg
[2019-05-02 06:55] VITALS: BP 115/71
--- NOTE | 2019-05-02 06:55 | NUR ---
ED Nurse Note: Pt arrived ED from home, c/o " I am suicidal by hearing voices" . Pt is A/O X 4, Vital signs stable at this time, waiting for orders.
--- NOTE | 2019-05-02 07:16 | NUR ---
HAND-OFF: Report given to Zeinab/RN for continue care. Pt is a/o x 3. VSS.
[2019-05-02] MEDS ORDERED: QUEtiapine 200mg tab ORAL ONE (07:30)
[2019-05-02] MEDS ORDERED: LORazepam Inj 2mg/ml 1ml IM ONE (07:30)
[2019-05-02] MEDS ORDERED: Depakote 500mg tab ORAL ONE (07:30)
[2019-05-02 07:44] LABS: APPEARANCE,URINE CLEAR; BILIRUBIN, URINE NEGATIVE (NEGATIVE); GLUCOSE, URINE (UA) NEGATIVE (NEGATIVE); KETONES,URINE 2+ (NEGATIVE); LEUKOCYTE ESTERASE ,URINE NEGATIVE (NEGATIVE); NITRITE,URINE NEGATIVE (NEGATIVE); PH,URINE 5 (4.5-8.0); PROTEIN,URINE 1+ (NEGATIVE)
[2019-05-02 07:48] LABS: BASOPHILS % (AUTO) 1.6 % (0.0-2.0); EOSINOPHILS % (AUTO) 0.5 % (0.0-3.0); HEMATOCRIT 39.6 % (42.0-52.0); HEMOGLOBIN 13.2 G/DL (14.2-18.0); LYMPHOCYTES % (AUTO) 41.5 % (20.0-45.0); MEAN CORPUSCULAR VOLUME 93 FL (80-99); MONOCYTES % (AUTO) 11.1 % (1.0-10.0); NEUTROPHILS % (AUTO) 45.3 % (45.0-75.0); PLATELET COUNT 359 K/UL (150-450); RED BLOOD COUNT 4.27 M/UL (4.70-6.10); RED CELL DISTRIBUTION WIDTH 13.7 % (11.6-14.8); WHITE BLOOD COUNT 6.5 K/UL (4.8-10.8)
[2019-05-02 07:52] LABS: UROBILINOGEN,URINE NORMAL MG/DL (0.0-1.0)
[2019-05-02 07:53] LABS: COLOR,URINE YELLOW
--- NOTE | 2019-05-02 07:55 | NUR ---
ED Nurse Note: pt was seen and examined by moise, pt medicated and tolerated well. pt is in room. talking to himself. pt is cooperative, able to follow instruction. will continue to monitor.
[2019-05-02 07:58] LABS: ANION GAP 14 mmol/L (5-15); BLOOD UREA NITROGEN 25 mg/dL (7-18); CALCIUM 9.8 MG/DL (8.5-10.1); CARBON DIOXIDE 25 MMOL/L (21-32); CHLORIDE 103 MMOL/L (98-107); CREATININE 1.4 MG/DL (0.55-1.30); POTASSIUM 3.9 MMOL/L (3.5-5.1); SODIUM 141 MMOL/L (136-145)
[2019-05-02 08:10] LABS: ALANINE AMINOTRANSFERASE 39 U/L (12-78); ALBUMIN 4.1 G/DL (3.4-5.0); ALBUMIN/GLOBULIN RATIO 0.9 (1.0-2.7); ALKALINE PHOSPHATASE 57 U/L (46-116); ASPARTATE AMINO TRANSFERASE 33 U/L (15-37); BILIRUBIN,TOTAL 1.1 MG/DL (0.2-1.0)
[2019-05-02 08:12] LABS: BILIRUBIN,DIRECT 0.3 MG/DL (0.0-0.3)
[2019-05-02 10:55] VITALS: BP 115/70
[2019-05-02] MEDS ORDERED: SEROQUEL XR150 MG ORAL (11:18)
[2019-05-02] MEDS ORDERED: DEPAKOTE500 MG PO (11:18)
[2019-05-02 11:30] VITALS: BP 115/70
--- NOTE | 2019-05-02 11:30 | NUR ---
ER DISCHARGE NOTE: Patient is cleared to be discharged per ERMD, pt is aox4, on room air, with stable vital signs. pt was given dc and prescription instructions, pt was able to verbalize understanding, pt id band removed without complications. pt is able to ambulate with steady gait. pt took all belongings.
--- NOTE | 2019-05-02 13:29 | Emergency Room Report ---
History of Present Illness General Chief Complaint: Behavioral Complaint Source: Patient Present Illness HPI 53-year-old male presents ED for evaluation. Stating that he is hearing voices. Admits to psychiatric history has not had his medication in 1 week. Takes Depakote and Seroquel. Also admits to drug use. Does not have a plan to hurt himself. No other aggravating or relieving factors. Denies any other associated symptoms Allergies: Coded Allergies: No Known Allergies (Unverified , 08/03/18) Patient History Past Medical History: psych hx, other - vertigo Past Surgical History: none Pertinent Family History: none Social History: Denies: smoking, alcohol use, drug use Immunizations: UTD Reviewed Nursing Documentation: PMH: Agreed; PSxH: Agreed Nursing Documentation-PMH Past Medical History: No History, Except For Hx Hypertension: Yes History Of Psychiatric Problem: Yes - SCHIZOAFFECTIVE, ANXIETY Hx Neurological Problems: Yes - BIPOLAR Review of Systems All Other Systems: negative except mentioned in HPI Physical Exam Vital Signs Date Time Temp Pulse Resp B/P (MAP) Pulse Ox O2 Delivery O2 Flow Rate FiO2 05/02/19 06:42 98.2 81 16 117/72 (87) 96 Room Air Sp02 EP Interpretation: reviewed, normal General Appearance: no apparent distress, alert, GCS 15, non-toxic Head: normocephalic, atraumatic Eyes: bilateral eye normal inspection, bilateral eye PERRL ENT: hearing grossly normal, normal pharynx, no angioedema, normal voice Neck: full range of motion, supple/symm/no masses Respiratory: chest non-tender, lungs clear, normal breath sounds, speaking full sentences Cardiovascular #1: regular rate, rhythm, no edema Cardiovascular #2: 2+ carotid (R), 2+ carotid (L), 2+ radial (R), 2+ radial (L) , 2+ dorsalis pedis (R), 2+ dorsalis pedis (L) Gastrointestinal: normal bowel sounds, non tender, soft, non-distended, no guarding, no rebound Rectal: deferred Genitourinary: normal inspection, no CVA tenderness Musculoskeletal: back normal, gait/station normal, normal range of motion, non- tender Neurologic: alert, oriented x3, responsive, dtp operator III-XII nml as tested, motor strength/tone normal, sensory intact, cerebellar normal, normal gait, speech normal Psychiatric: no suicidal/homicidal ideation, no delusions, depressed affect, anxious Reflexes: 3+ bicep (R), 3+ bicep (L), 3+ tricep (R), 3+ tricep (L), 3+ knee (R) , 3+ knee (L) Skin: normal color, no rash, warm/dry, well hydrated Lymphatic: no adenopathy Medical Decision Making Homeless Attestation I, The treating physician Dr. Barr, has assessed and agrees that patient is medically stable for discharge to an outpatient disposition. Diagnostic Impression: Primary Impression: Cocaine abuse Additional Impression: Behavioral change ER Course Hospital Course 53-year-old male presents ED hearing voices. Admits to drug use. Differential diagnoses include: schizophrenia, psychosis, ETOH, substance abuse Clinical course Patient placed on stretcher. On compliance monitor. After initial history and physical I ordered labs, depakote, seroquel, ativan Labs-electrolytes normal, aspirin/Tylenol levels normal, EtOH level normal, U. tox cocaine. depakote subtherapeutic On reassessment patient feels better. Does not endorse SI or HI. Does not have a plan. I explained the dangers of cocaine use. Encourage compliance with his psychiatric medications. I will provide him with refills. I will provide him with psychiatric referrals homeless checklist completed i. I feel this is a highly complex case requiring extensive working including EKG/Rhythm strip, Xray/CT/US, Blood/urine lab work, repeat exams while in ED, and administration of strong opiates/narcotics for pain control, admission to hospital or close patient follow up. Diagnosis - cocaine abuse, behavioral change Stable and discharged to home. Followup with PMD/psychiatrist. Return to ED if symptoms recur or worsen Labs Test 05/02/19 07:20 White Blood Count 6.5 K/UL (4.8-10.8) Red Blood Count 4.27 M/UL (4.70-6.10) Hemoglobin 13.2 G/DL (14.2-18.0) Hematocrit 39.6 % (42.0-52.0) Mean Corpuscular Volume 93 FL (80-99) Mean Corpuscular Hemoglobin 30.8 PG (27.0-31.0) Mean Corpuscular Hemoglobin Concent 33.2 G/DL (32.0-36.0) Red Cell Distribution Width 13.7 % (11.6-14.8) Platelet Count 359 K/UL (150-450) Mean Platelet Volume 5.6 FL (6.5-10.1) Neutrophils (%) (Auto) 45.3 % (45.0-75.0) Lymphocytes (%) (Auto) 41.5 % (20.0-45.0) Monocytes (%) (Auto) 11.1 % (1.0-10.0) Eosinophils (%) (Auto) 0.5 % (0.0-3.0) Basophils (%) (Auto) 1.6 % (0.0-2.0) Urine Color Yellow Urine Appearance Clear Urine pH 5 (4.5-8.0) Urine Specific [place] 1.025 (1.005-1.035) Urine Protein 1+ (NEGATIVE) Urine Glucose (UA) Negative (NEGATIVE) Urine Ketones 2+ (NEGATIVE) Urine Blood Negative (NEGATIVE) Urine Nitrite Negative (NEGATIVE) Urine Bilirubin Negative (NEGATIVE) Urine Urobilinogen Normal MG/DL (0.0-1.0) Urine Leukocyte Esterase Negative (NEGATIVE) Urine RBC 0 /HPF (0 - 0) Urine WBC 2-4 /HPF (0 - 0) Urine Squamous Epithelial Cells Occasional /LPF Urine Bacteria Occasional /HPF (NONE) Urine Hyaline Casts 0-2 /LPF (NONE) Urine Mucus Few /LPF (NONE/OCC) Sodium Level 141 MMOL/L (136-145) Potassium Level 3.9 MMOL/L (3.5-5.1) Chloride Level 103 MMOL/L (98-107) Carbon Dioxide Level 25 MMOL/L (21-32) Anion Gap 14 mmol/L (5-15) Blood Urea Nitrogen 25 mg/dL (7-18) Creatinine 1.4 MG/DL (0.55-1.30) Estimat Glomerular Filtration Rate > 60 mL/min (>60) Glucose Level 71 MG/DL (74-106) Calcium Level 9.8 MG/DL (8.5-10.1) Total Bilirubin 1.1 MG/DL (0.2-1.0) Direct Bilirubin 0.3 MG/DL (0.0-0.3) Aspartate Amino Transf (AST/SGOT) 33 U/L (15-37) Alanine Aminotransferase (ALT/SGPT) 39 U/L (12-78) Alkaline Phosphatase 57 U/L (46-116) Total Protein 8.8 G/DL (6.4-8.2) Albumin 4.1 G/DL (3.4-5.0) Globulin 4.7 g/dL Albumin/Globulin Ratio 0.9 (1.0-2.7) Salicylates Level 3.2 ug/mL (2.8-20) Urine Opiates Screen Negative (NEGATIVE) Acetaminophen Level < 2 MCG/ML (10-30) Urine Barbiturates Screen Negative (NEGATIVE) Valproic Acid (Depakene) Level 17 MCG/ML (50-100) Phencyclidine (PCP) Screen Negative (NEGATIVE) Urine Amphetamines Screen Negative (NEGATIVE) Urine Benzodiazepines Screen Negative (NEGATIVE) Urine Cocaine Screen Positive (NEGATIVE) Urine Marijuana (THC) Screen Positive (NEGATIVE) Serum Alcohol < 3 mg/dL Last Vital Signs Date Time Temp Pulse Resp B/P (MAP) Pulse Ox O2 Delivery O2 Flow Rate FiO2 05/02/19 11:30 98.2 78 16 115/70 96 Room Air Status: improved Disposition: HOME, SELF-CARE Condition: Stable Scripts Divalproex Sodium (Depakote) 500 Mg Tablet.dr 500 MG PO BID for 30 Days, TAB Prov: Fazal Barr MD 05/02/19 Quetiapine Fumarate (SEROQUEL XR) 150 Mg Tab.er.24h 150 MG ORAL DAILY, #30 TAB Prov: Fazal Barr MD 05/02/19 Referrals: Rj VICENTE,REFERRING (PCP) [facility] - Peds ER - Patient Instructions: Finding Treatment for Addiction Fazal Barr MD May 02, 2019 13:29
== END 2019-05-02 11:30 | disposition home or self-care (01) ==
LOC: EMR 07:09
DX: F14.10 Cocaine abuse, uncomplicated (principal); F91.9 Conduct disorder, unspecified; F25.9 Schizoaffective disorder, unspecified; F41.9 Anxiety disorder, unspecified; F31.9 Bipolar disorder, unspecified; I10 Essential (primary) hypertension
CPT/HCPCS: 36415; 80053; 80164; 80307; 80329; 81003; 82248; 85025; 96372; 99283

== ENCOUNTER 2019-05-02 20:17 | Emergency (ER) | payer OTHER ==
[~2019-05-02] VITALS: Ht 190.5 cm; Wt 90.7 kg
--- NOTE | 2019-05-02 20:17 | NUR ---
ED Nurse Note: Patient [facility]ather [facility] . stating that he has been feeling "suicidal" just today, however at time of arrival patient has no plans, states that he just wants to play dice. patient wasj ust discharged here earlier this morning. patient is alert and oriented x4, has a mobile phone. when attempting to talk to staff, patient stated that he needed "psychiatric help"
[2019-05-02 20:19] VITALS: BP 122/80
--- NOTE | 2019-05-02 20:39 | Emergency Room Report ---
History of Present Illness General Chief Complaint: Behavioral Complaint Source: Patient Present Illness HPI Patient 53-year-old male brought in by EMS after increased agitation. Patient presented after he called EMS from [facility]. Patient was noted to have increased agitation since recent visit this morning. Patient states that he had been feeling better but is now not feeling as well. History is limited by poor cooperation. Allergies: Coded Allergies: No Known Allergies (Unverified , 08/03/18) Patient History Reviewed Nursing Documentation: PMH: Agreed; PSxH: Agreed Nursing Documentation-PMH Past Medical History: No History, Except For Hx Hypertension: Yes Hx Diabetes: Yes History Of Psychiatric Problem: Yes - SCHIZOAFFECTIVE, BIPOLAR Hx Neurological Problems: Yes - BIPOLAR Review of Systems All Other Systems: limited - by poor historian Physical Exam Vital Signs Date Time Temp Pulse Resp B/P (MAP) Pulse Ox O2 Delivery O2 Flow Rate FiO2 05/02/19 20:14 98.2 88 16 122/80 (94) 96 Room Air General Appearance: normal inspection, alert/responsive Head: normocephalic Eyes: normal eye exam ENT: normal ENT inspection Neck: normal inspection Respiratory: normal inspection Cardiovascular: normal inspection Gastrointestinal: normal inspection, non-tender Musculoskeletal: normal inspection Neurologic: normal inspection, CN II-XII intact, oriented x3 Psychiatric: normal inspection, judgment & insight normal, other - hostile Skin: normal inspection, no rash Medical Decision Making Diagnostic Impression: Primary Impression: Behavioral disorder ER Course Patient presented for increased agitation. Differential diagnosis include is not limited to substance abuse, schizoaffective disorder, dehydration among others. Initially evaluated patient immediately after arrival. Patient was stating that he did not feel well. Patient had been seen earlier in the day and was noted to have a urine drug screen positive for cocaine as well as marijuana. Patient was requesting psychiatric evaluation. Patient was seen by me in the emergency department and subsequently eloped without notifying staff. Last Vital Signs Date Time Temp Pulse Resp B/P (MAP) Pulse Ox O2 Delivery O2 Flow Rate FiO2 05/02/19 20:19 98.2 86 16 122/80 96 Room Air Status: unchanged Disposition: ELOPED Condition: Unknown Santiago Lyon MD May 02, 2019 20:39
--- NOTE | 2019-05-02 21:01 | NUR ---
ELOPEMENT: Patient left the ED willingly and without notifying staff, patient was seen outside empyting multilpe garbage cans and throwing it on the ambulance doors. patient denies any plan to commit harm to self or others, states that he just wants to play dice. patient walked out of ED with a steady gait, VSS
== END 2019-05-02 21:13 | disposition left against medical advice (07) ==
LOC: EDBD 20:17 → EMR 20:40
DX: F91.9 Conduct disorder, unspecified (principal); I10 Essential (primary) hypertension; F25.9 Schizoaffective disorder, unspecified; F31.9 Bipolar disorder, unspecified; E11.9 Type 2 diabetes mellitus without complications
CPT/HCPCS: 99282